=== PATIENT | female | born 1990 | race Caucasian/White ===

== ENCOUNTER 2017-12-29 15:01 | Emergency (ER) | payer MEDICAID ==
[2017-12-29 15:40] LABS: URINE BLOOD (Dip) POC Negative (NEGATIVE); URINE GLUCOSE (Dip) POC Negative (NEGATIVE); URINE KETONES (Dip) POC 2+ (NEGATIVE); URINE LEUKOCYTE EST (Dip) POC Negative (NEGATIVE); URINE NITRITE (Dip) POC Negative (NEGATIVE); URINE TOTAL PROTEIN POC Negative (NEGATIVE)
== END 2017-12-29 16:18 | disposition home or self-care (01) ==
LOC: FTE 15:01
DX: M54.9 Dorsalgia, unspecified (principal)
CPT/HCPCS: 81003; 81025; 99284